=== PATIENT | male | born 1975 | race Asian ===

== ENCOUNTER 2022-08-07 06:35 | Emergency (ER) | payer OTHER ==
[~2022-08-07] VITALS: Ht 180.3 cm; Wt 92.5 kg
[2022-08-07 06:40] VITALS: BP 163/102
--- NOTE | 2022-08-07 06:45 | NUR ---
Patient ambulated to bed 12.
[2022-08-07 06:54] VITALS: BP 163/102
[2022-08-07] MEDS ORDERED: ONDANSETRON 4 MG ODT PO ONE (06:55)
--- NOTE | 2022-08-07 06:58 | NUR ---
Dr. Walker examining patient.
[2022-08-07] MEDS ORDERED: DICYCLOMINE HCL LIQUID 20 MG, ALUMINUM HYD/MAG/SIMETHICONE 30 ML, LIDOCAINE VISCOUS 2% ... PO ONE ×3 (07:00)
--- NOTE | 2022-08-07 07:00 | NUR ---
47/m walked in c/o epigastric pain onset today. denies vomiting or diarrhea but states nausea. pmh: gastric ulcer
[2022-08-07] MEDS ORDERED: IBUP-2213 PO (07:05)
[2022-08-07] MEDS ORDERED: ONDA8TAB87 PO (07:05)
[2022-08-07] MEDS ORDERED: OMEP40EC23 PO (07:05)
[2022-08-07] MEDS ORDERED: ALUMINUM HYD/MAG/SIMETHICONE 30 ML UDC ONE (07:07)
[2022-08-07] MEDS ORDERED: DICYCLOMINE HCL LIQUID 10 MG/5 ML UDC ONE (07:07)
--- NOTE | 2022-08-07 07:35 | NUR ---
Patient discharged with v/s stable. Written and verbal after care instructions given and explained. Patient verbalized understanding. Ambulatory with steady gait. All questions addressed prior to discharge. Advised to follow up with PMD.
== END 2022-08-07 07:34 | disposition home or self-care (01) ==
LOC: MED 06:35
DX: R10.13 Epigastric pain (principal)
CPT/HCPCS: 99283; Q0162

== ENCOUNTER 2022-08-08 13:14 | Inpatient (IN) | payer OTHER ==
[~2022-08-08] VITALS: Ht 180.3 cm; Wt 95.3 kg
[~2022-08-08 13:14] MED LIST: IBUP-2213 PO; OMEP40EC23 PO; ONDA8TAB87 PO
[2022-08-08 13:29] VITALS: BP 148/87
--- NOTE | 2022-08-08 13:35 | NUR ---
AMBULATED TO BED 5
--- NOTE | 2022-08-08 14:01 | NUR ---
47/M PRESENTS TO ED WITH C/O ABDOMINAL PAIN X3 DAYS, STATES HE WAS SEEN HERE 2 DAYS AGO AND DX WITH AN ULCER AND GIVEN RX OF OMEPRAZOLE AND MOTRIN WITH NO RELIEF IN PAIN. DENIES N/V/D OR URINARY SYMPTOMS, DENIES CP, SOB, FEVERS.
[2022-08-08] MEDS ORDERED: ALUMINUM HYD/MAG/SIMETHICONE 30 ML UDC ONE (14:04)
[2022-08-08] MEDS ORDERED: DICYCLOMINE HCL LIQUID 10 MG/5 ML UDC ONE (14:04)
[2022-08-08] MEDS ORDERED: DICYCLOMINE HCL LIQUID 20 MG, ALUMINUM HYD/MAG/SIMETHICONE 30 ML, LIDOCAINE VISCOUS 2% ... PO ONE ×3 (14:05)
[2022-08-08] MEDS ORDERED: ETOMIDATE 20 MG/10 ML VIAL IVP ONE ×2 (14:49→20:30)
[2022-08-08] MEDS ORDERED: ROCURONIUM 50 MG/5 ML VIAL IV ONE ×2 (14:49→20:30)
[2022-08-08] MEDS ORDERED: FAMOTIDINE 20 MG/2 ML VIAL IVP ONE (14:50)
[2022-08-08] MEDS ORDERED: ONDANSETRON 4 MG/2 ML VIAL IVP ONE (14:50)
[2022-08-08] MEDS ORDERED: NACL 0.9% 1,000 ML IV ONE (14:50)
[2022-08-08 15:10] LABS: HEMATOCRIT 42.7 % (36-52); HEMOGLOBIN 14.8 g/dL (12.0-18.0); MEAN CORPUSCULAR HEMOGLOBIN 28 pg (27-31); MEAN CORPUSCULAR HGB CONC 35 g/dL (33-37); MEAN CORPUSCULAR VOLUME 80.3 fL (80-94); PLATELET COUNT (AUTO) 272 K/uL (140-450); RED BLOOD CELL COUNT(AUTO) 5.32 MIL/uL (4.20-6.10); RED CELL DISTRIBUTION WIDTH 13.9 % (11.6-13.7); WHITE BLOOD COUNT (AUTO) 12.5 K/uL (4.8-10.8)
[2022-08-08 15:23] LABS: ALBUMIN 3.7 g/dL (3.4-5.0); ANION GAP 16.1 (8-16); CARBON DIOXIDE 27.2 mmol/L (21-32); CREATININE 1.2 mg/dL (0.6-1.3); POTASSIUM 3.3 mmol/L (3.5-5.1)
[2022-08-08 15:45] LABS: LYMPHOCYTES % (MANUAL) 3 % (20-46); MONOCYTES % (MANUAL) 2 % (5-12)
--- NOTE | 2022-08-08 16:18 | NUR ---
Patient is laying in bed, respirations even and unlabored. All needs met by staff.
[2022-08-08] MEDS ORDERED: cefTRIAXone 1,000 MG VIAL ONE (17:30)
--- NOTE | 2022-08-08 18:25 | NUR ---
Patient ambulated to restroom with steady gait.
[2022-08-08] MEDS ORDERED: metroNIDAZOLE 500 MG/NS PREMIX 100 ML IV ONE (18:50)
[2022-08-08] MEDS ORDERED: ONDANSETRON 4 MG/2 ML VIAL IVP PRN (19:05)
[2022-08-08] MEDS ORDERED: ZOLPIDEM 10 MG TAB PO PRN (19:05)
[2022-08-08] MEDS ORDERED: MAG SULF 2000 MG/WATER PREMIX 50 ML IV PRN (19:05)
[2022-08-08] MEDS ORDERED: DOCUSATE SODIUM 100 MG GELCAP PO PRN (19:05)
[2022-08-08] MEDS ORDERED: POTASSIUM CHLORIDE 10 MEQ TABER PO PRN (19:05)
[2022-08-08] MEDS ORDERED: ACETAMINOPHEN 325 MG TAB PO PRN (19:05)
[2022-08-08] MEDS: NACL 0.9% 1,000 ML IV SCH ×4 (19:07→22:20)
--- NOTE | 2022-08-08 19:10 | NUR ---
FRANCO obtained, walked to lab. Handed to CPT.
--- NOTE | 2022-08-08 19:16 | NUR ---
Report given to ALEX Lozano for transfer of care.
[2022-08-08] MEDS ORDERED: HALOPERIDOL IM 5 MG/ML VIAL IVP ONE ×2 (19:45→19:50)
[2022-08-08] MEDS ORDERED: diphenhydrAMINE 50 MG/ML VIAL IVP ONE (19:45)
--- NOTE | 2022-08-08 19:45 | NUR ---
PT OUT OF BED IS A&OX1. PT IS ALTERED. DR THOMPSON MADE AWARE OF PT STATUS. PT IS FEBRILE 105.0 TEMP. COOLING MEASURES BEING DONE.
[2022-08-08] MEDS ORDERED: diphenhydrAMINE 50 MG/ML VIAL ONE (19:47)
[2022-08-08] MEDS ORDERED: HALOPERIDOL IM 5 MG/ML VIAL ONE (19:47)
[2022-08-08] MEDS: LORazepam 2 MG/ML VIAL IVP PRN (19:52)
[2022-08-08] MEDS ORDERED: INTUBATION KIT MC ONE (20:17)
--- NOTE | 2022-08-08 20:28 | NUR ---
Marychuy marcos in [facility] - 08/08/[address] WEBSTER
--- NOTE | 2022-08-08 20:29 | NUR ---
DR ARANA TO INTUBATE PT . DR THOMPSON AWARE.
[2022-08-08] MEDS ORDERED: PROPOFOL 1000 MG/100 ML PREMIX 100 ML IV ONE (20:30)
[2022-08-08] MEDS ORDERED: fentaNYL citrate 1 MG in NACL 0.9% 80 ML IV SCH (20:30)
--- NOTE | 2022-08-08 20:32 | NUR ---
RT AT BEDSIDE, ALONG WITH ERMD YASMEEN FOR INTUBATION.
--- NOTE | 2022-08-08 20:37 | NUR ---
2031:RSI in progress at bedside with Dr. Leonard 2035: Etomidate 20mg given by JEREMY Giang 2036: Rocuronium 100mg given by JEREMY Giang 2036: Intubated at this time by Dr. Leonard. 7.5 ETT secured at 24cm at the lip. Equal chest riseand fall, lung sounds ausultated bilaterally. + color change. Pending CXR for tube placement.
[2022-08-08 20:45] VITALS: BP 125/63
--- NOTE | 2022-08-08 20:47 | NUR ---
PT INTUBATED XRAY AT BEDSIDE FOR PLACEMENT
--- NOTE | 2022-08-08 20:50 | NUR ---
PROPOFOL STARTED, MANAGED BY MIC LUNA.
[2022-08-08] MEDS ORDERED: ACETAMINOPHEN 650 MG SUPP RC STA (20:55)
[2022-08-08] MEDS ORDERED: ADENOSINE 6 MG/2 ML VIAL IVP ONE (20:55)
[2022-08-08] MEDS: PROPOFOL 1000 MG/100 ML PREMIX 100 ML IV PRN (21:00)
--- NOTE | 2022-08-08 21:00 | NUR ---
PT BED STATUS CHANGED TO ICU.
--- NOTE | 2022-08-08 21:11 | NUR ---
ULTRASOUND AT BEDSIDE
--- NOTE | 2022-08-08 21:16 | NUR ---
ULTRASOUND AT BEDSIDE
--- NOTE | 2022-08-08 21:45 | NUR ---
Prop increased to 30mcg/kg/min.
--- NOTE | 2022-08-08 21:55 | NUR ---
ABG DRAWN ORDERED AND RESULTS WERE REPORTED TO ED DR. BASELINE ABG FIO2 WAS TITRATED AND CURRENTLY 40% WITH SPO2 97% TEN MINUTES POST TITRATION, NO OTHER CHANGES WERE MADE. WILL CONTINUE TO MONITOR
--- NOTE | 2022-08-08 23:17 | NUR ---
RECEIVED PT FROM ED ACCOMPANIED VIA REFRIGERATING ENGINEER HEAD AND EMT.FOLLOWED BY EDWARDO MARRERO AND HIS ORIENTEP PT IS ACTIVELY HAVING A VERY FOUL SMELLING BM. HE STARTED IN THE CT LAB AND CONTINUE X2 IN THE ICU. HE'S INTUBATED TO PROTECT HIS AIRWAY BECAUSE HE BECAME ALTERED IN THE ED. HE HAS A 7.5 TUBE AND IT IS 23 AT THE LIP LINE. HE IS ON PROPOFOL , BUT IT'S A ONE TIME ORDER HIS IV SITE IS TWO SITE LFA 20 GAUGE AND THE RAC 20GAUGE HE HAS A RIBEIRO CATH IN PLACE BECAUSE HE LOST LUCIDITY AFTER HE HAD ALOC.
[2022-08-08 23:35] VITALS: BP 88/30
[2022-08-09] VITALS (19 sets, daily range): BP systolic 83–150; BP diastolic 50–113
--- NOTE | 2022-08-09 01:00 | NUR ---
TEXT SENT TO DR BAKER REQUESTING ORDERS FOR THE FLEXISEAL AND C-DIFF AND AN ODOR FOR PROPOFOL CONTINUOS. GTT. LATER A CALL WAS PLACED TO AND SHE ANSWERED HER PHONE AND SHE RELATED THE ORDERS TO [facility].
--- NOTE | 2022-08-09 02:00 | NUR ---
PT'S C-DIFF STOOL WAS COLLECTED AND TAKEN TO THE LAB.
[2022-08-09] MEDS: PROPOFOL 1000 MG/100 ML PREMIX 100 ML IV PRN ×5 (04:35→23:11)
[2022-08-09] MEDS: POTASSIUM CHLORIDE 20% 40 MEQ/15 ML UDC NG PRN (04:45)
[2022-08-09] MEDS ORDERED: PIPERACILLIN/TAZOBACTAM 3.375 GM VIAL IV ONE (04:47)
[2022-08-09] MEDS: PIPERACILLIN/TAZOBACTAM 3.375 GM in DEXTROSE 5% 50 ML IV SCH ×3 (04:54→21:17)
[2022-08-09 05:39] LABS: BASOPHILS % (AUTO) 0.1 % (0.0-2.0); HEMATOCRIT 43.3 % (36-52); HEMOGLOBIN 14.6 g/dL (12.0-18.0); LYMPHOCYTES # (AUTO) 0.9 K/uL (2.0-11.5); LYMPHOCYTES % (AUTO) 7.8 % (20.5-51.1); MEAN CORPUSCULAR HEMOGLOBIN 28 pg (27-31); MEAN CORPUSCULAR HGB CONC 34 g/dL (33-37); MEAN CORPUSCULAR VOLUME 83.4 fL (80-94); MONOCYTES # (AUTO) 0.4 K/uL (0.8-1.0); MONOCYTES % (AUTO) 3.7 % (1.7-9.3); NEUTROPHILS # (AUTO) 9.7 K/uL (1.8-7.7); NEUTROPHILS % (AUTO) 88.4 % (42.2-75.2); PLATELET COUNT (AUTO) 197 K/uL (140-450); RED BLOOD CELL COUNT(AUTO) 5.19 MIL/uL (4.20-6.10)
[2022-08-09 06:01] LABS: ALBUMIN 3.2 g/dL (3.4-5.0); ANION GAP 17.2 (8-16); CARBON DIOXIDE 26.8 mmol/L (21-32); CREATININE 1.3 mg/dL (0.6-1.3); TOTAL BILIRUBIN 3.3 mg/dL (0.0-1.0)
--- NOTE | 2022-08-09 07:30 | NUR ---
Received pt sedated. ETT to vent settings AC/VC TV 500 rate 18 PEEP 5 FiO2@35%. Sinus rhythm on monitor. NG-tube to right nare intact and clamped. Elizondo catheter draining to bedside drainage. Flexiseal in place. Peripheral IV 20 gauge on RAC intact and patent infusing NS@100ml/hr and peripheral IV 20 gauge on left forearm intact and patent infusing Propofol @45mcg/kg/min. Bilat soft wrist restraints in place. Safety precautions in place.
[2022-08-09] MEDS ORDERED: VANCOMYCIN PER PHARMACY MC PRN (07:35)
--- NOTE | 2022-08-09 08:15 | NUR ---
Seen and examined by Dr. Vizcaino.
--- NOTE | 2022-08-09 08:20 | NUR ---
Seen and examined by Dr. Meyer.
--- NOTE | 2022-08-09 08:30 | NUR ---
Seen and examined by Dr. Kapadia. Pt's mother at bedside speaking with Dr. Kapadia.
[2022-08-09] MEDS: VANCOMYCIN HCL 1.25 GM in DEXTROSE 5% 250 ML IV SCH ×2 (09:01→21:30)
--- NOTE | 2022-08-09 10:27 | NUR ---
PATIENT HAS BEEN SCREENED AND CATEGORIZED MODERATE NUTRITION RISK. PATIENT WILL BE SEEN WITHIN 3-5 DAYS OF ADMISSION. 08/08/22-08/13/[address] REFERRAL RECEIVED; INAPPROPRIATE TRIGGER.
[2022-08-09] MEDS ORDERED: NOREPINEPHRINE 4 MG in DEXTROSE 5% 250 ML IV PRN (10:50)
--- NOTE | 2022-08-09 11:06 | NUR ---
DC PLANNIN YRS OLD MALE PATIENT WAS ADMITTED FROM HOME WITH A DX OF ACUTE CHOLECYSTITIS. PATIENT HAS NO MEDICAL HX. CXR SHOWED NO ACUTE CARDIOPULMONARY DISEASE. RAPID COVID TEST NEGATIVE. KUB, CT ABD AND US GALLBLADDER SHOWED CHOLECYSTITIS. HIDA SCAN CONFIRMED CHOLECYSTITIS. CT HEAD NEGATIVE. INTUBATED SEDATED ON PROPOFOL DRIP. ADMINISTERED IVF, IV ABX VANCOMYCIN AND ZOSYN. CONSULTED WITH SURGEON, GI, PULMO AND ID. CM TO FOLLOW
--- NOTE | 2022-08-09 11:25 | NUR ---
Called PICC line for PICC line placement. Rodrick will call back with
--- NOTE | 2022-08-09 11:49 | NUR ---
Spoke to Dr. Gomez on the phone and updated him with ultrasound gallbladder and CT of abdomen and pelvis results and also reported liver function results and labs. New orders received for Flagyl and increase in IVF rate. Per Dr. Gomez, pt will need ERCP and biliary stent done today.
[2022-08-09] MEDS: NACL 0.9% 1,000 ML IV SCH ×4 (11:59→23:08)
[2022-08-09] MEDS: metroNIDAZOLE 500 MG/NS PREMIX 100 ML IV SCH ×2 (12:05→21:30)
--- NOTE | 2022-08-09 12:34 | NUR ---
Hida scan being done at bedside.
[2022-08-09 14:24] LABS: APPEARANCE,URINE CLOUDY (CLEAR); BILIRUBIN,URINE 2+ (NEGATIVE); BLOOD, URINE 2+ (NEGATIVE); COLOR,URINE ORANGE (YELLOW); LEUKOCYTE ESTERASE ,URINE NEGATIVE (NEGATIVE); NITRITE, URINE NEGATIVE (NEGATIVE); UGLUCOSE NEGATIVE (NEGATIVE)
[2022-08-09 14:38] LABS: WBC,URINE 0-5 /HPF (0-5); YEAST,URINE Few /HPF (None Seen)
[2022-08-09 14:39] LABS: OTHER CASTS, URINE None Seen /LPF (None Seen)
--- NOTE | 2022-08-09 14:56 | NUR ---
Per radiologist, he is not able to visualize the gallbladder and will need to take pictures in intervals.
--- NOTE | 2022-08-09 17:02 | NUR ---
Hida scan completed at bedside.
--- NOTE | 2022-08-09 18:30 | NUR ---
Seen and examined by Dr. Gomez. Dr. Gomez on the phone with sister Jennifer regarding procedure for tomorrow.
--- NOTE | 2022-08-09 19:20 | NUR ---
Endorsed to manufacturing supervisor 2nd shift nurse for continuity of care.
--- NOTE | 2022-08-09 20:00 | NUR ---
RECEIVED PATEINT INTUBATED, ON MECHANICAL VENTILATION. SEDATED WITH PROPOFOL @45MCG/KG/MIN TO KEEP RASS -3. PATIENT ON BILATERAL SOFT WRIST RESTRAINTS.
--- NOTE | 2022-08-09 21:00 | NUR ---
UPDATED SISTER @ BEDSIDE REGARDING PT CONDITION AND PLAN FOR PROCEDURE ON 08/10/22
[2022-08-09] MEDS: PANTOPRAZOLE 40 MG INJ VIAL IVP SCH (21:28)
[2022-08-10] VITALS (19 sets, daily range): BP systolic 100–133; BP diastolic 55–89
[2022-08-10] MEDS: PIPERACILLIN/TAZOBACTAM 3.375 GM in DEXTROSE 5% 50 ML IV SCH ×4 (03:32→20:08)
[2022-08-10] MEDS: PROPOFOL 1000 MG/100 ML PREMIX 100 ML IV PRN ×6 (03:46→22:32)
[2022-08-10 05:57] LABS: BASOPHILS % (AUTO) 0.4 % (0.0-2.0); EOSINOPHILS % (AUTO) 0.1 % (0.0-4.0); HEMATOCRIT 35.9 % (36-52); HEMOGLOBIN 12.1 g/dL (12.0-18.0); LYMPHOCYTES # (AUTO) 1.2 K/uL (2.0-11.5); LYMPHOCYTES % (AUTO) 12.6 % (20.5-51.1); MEAN CORPUSCULAR HEMOGLOBIN 28 pg (27-31); MEAN CORPUSCULAR HGB CONC 34 g/dL (33-37); MONOCYTES # (AUTO) 0.5 K/uL (0.8-1.0); MONOCYTES % (AUTO) 5.6 % (1.7-9.3); NEUTROPHILS # (AUTO) 7.9 K/uL (1.8-7.7); NEUTROPHILS % (AUTO) 81.3 % (42.2-75.2); PLATELET COUNT (AUTO) 127 K/uL (140-450); RED BLOOD CELL COUNT(AUTO) 4.38 MIL/uL (4.20-6.10); RED CELL DISTRIBUTION WIDTH 14.1 % (11.6-13.7); WHITE BLOOD COUNT (AUTO) 9.7 K/uL (4.8-10.8)
[2022-08-10 06:06] LABS: ANION GAP 14.4 (8-16); CARBON DIOXIDE 22.7 mmol/L (21-32); CREATININE 1.2 mg/dL (0.6-1.3); POTASSIUM 3.1 mmol/L (3.5-5.1)
[2022-08-10] MEDS: NACL 0.9% 1,000 ML IV SCH ×4 (06:47→19:27)
--- NOTE | 2022-08-10 07:15 | NUR ---
ENDORSED TO TUCKER LUNA
--- NOTE | 2022-08-10 07:35 | NUR ---
Received pt sedated. ETT to vent settings AC/VC TV 500 rate 18 PEEP 5 FiO2@23%. Sinus rhythm on monitor. NG-tube intact to right nare and clamped. Elizondo catheter intact and draining to BSD. Flexiseal intact and draining to gravity. PICC line on right upper arm intact and patent infusing Propofol 45mcg/kg/min and NS @200ml/hr. Peripheral IV RAC 20 gauge saline locked. Peripheral IV 20 gauge on left forearm saline locked. Bilat soft wrist restraints in place. Safety precautions in place.
[2022-08-10] MEDS: PANTOPRAZOLE 40 MG INJ VIAL IVP SCH ×2 (08:02→20:08)
[2022-08-10] MEDS: POTASSIUM CHLORIDE 20% 40 MEQ/15 ML UDC NG PRN (08:03)
--- NOTE | 2022-08-10 08:09 | NUR ---
Seen and examined by Dr. Vizcaino. Addendum: 08/10/22 at 1238 by Stephanie Abdalla RN [id number]: Reported calcium level. New order received.
[2022-08-10] MEDS ORDERED: CALCIUM GLUC 1 GM/50 mL NS BAG 50 ML IV SCH (08:18)
--- NOTE | 2022-08-10 11:41 | NUR ---
PT. WITH LOW BILLY SCALE AT MODERATE TO HIGH RISK, CONTINUE TO FOLLOW PRESSURE INJURY PREVENTION INTERVENTIONS. -POSITIONING: TURN AND REPOSITION PATIENT Q 2H OR SOONER USE PILLOWS TO KEEP BONY PROMINENCES FROM DIRECT CONTACT WITH SURFACES USE REPOSITIONING WEDGES TO PROVIDE 30-DEGREE ANGLE FOR SIDE LYING POSITIONS OFFLOADING OR FOAM DRESSING TO ALL TUBING TO PREVENT MEDICAL DEVICES RELATED PRESSURE INJURY -RE-EVALUATING AND MANAGING INCONTINENCE MONITOR SKIN CONDITION DURING POSITION CHANGE DO NOT MASSAGE REDNESS, BONY PROMINENCES FREQUENT JANE-CARE AND PROVIDE BARRIER CREAMS PRN IF SOILING MOISTURE CONTROL BY OFFER BED HOLDER/URINAL /ABSORBENT PAD TO WICK AND HOLD MOISTURE KEEP SKIN DRY AND PROTECT FROM FRICTION -MANAGE FRICTION/SHEAR/MOBILITY KEEP HOB AT THE LOWEST LEVEL OF ELEVATION NO MORE THAN 30 DEGREE UNLESS OTHERWISE CONTRAINDICATED USE LIFT SHEET OR TRANSFER DEVICE TO MOVE PATIENT AND PREVENT LATERAL SHEER. PROTECT HEELS, ELBOWS BONY PROMINENCES WITH SKIN BERRIES OR FOAM DRESSING IF EXPOSED TO FRICTION OFFLOAD BILATERAL HEELS BY PLACING PILLOWS UNDER CALVES AT ALL TIMES, UNLESS OTHERWISE CONTRAINDICATED -PRESSURE REDISTRIBUTION SURFACE THERAPY MARYCARMEN ISOFLEX MATTRESS -NUTRITION: PLEASE FOLLOW RD RECOMMENDATIONS AND OFFER NUTRITION SUPPLEMENTS IF ORDERED. PLEASE CONTACT WOUND CARE NURSE FOR ANY QUESTION AND CHANGE OF WOUND CONDITION.
--- NOTE | 2022-08-10 12:44 | NUR ---
EKG done at bedside.
[2022-08-10] MEDS ORDERED: ROCURONIUM 50 MG/5 ML VIAL IV ONE (13:33)
--- NOTE | 2022-08-10 13:35 | NUR ---
Left to OR for ERCP.
--- NOTE | 2022-08-10 14:26 | NUR ---
PT RETURNED TO ICU BED 2 VIA BED. VSS.
--- NOTE | 2022-08-10 14:42 | NUR ---
DC PLANNING PATIENT IS CURRENTLY INTUBATED, THEREFORE, WILFREDO OUTREACHED TO PATIENTS , MERISSA, TO GATHER COLLATERAL INFORMATION. MERISSA REPORTS THAT PATIENT RESIDES IN A TWO STORY HOME WITH HER, AT THE ADDRESS LISTED ON FILE. SHE REPORTS SHE IS PATIENT EMERGENCY CONTACT, . MERISSA REPORTS TO HER KNOWLEDGE PATIENT DOES NOT HAVE AD IN PLACE. MERISSA REPORTS THAT PATIENT IS INCONSISTENT WITH MEETING WITH PCP AND REPORTS LAST VISIT WITH A PCP 2 YRS AGO. MERISSA REPORTS PRIOR TO THIS VISIT, PATIENT DOES NOT TAKE MEDICATION AND DENIES BARRIERS IN ACCESS TO MEDICATION. MERISSA REPORTS PICKING UP MEDICATION FROM [facility] IN [place], IF NEEDED. PATIENT IS REPORTED TO BE AMBULATORY AND COMPLETES ALL ADL'S INDEPENDENTLY. 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 NO MH/SA HX REPORTED. MERISSA REPORTS DC PLAN IS FOR PATIENT TO RETURN HOME WHEN MEDICALLY STABLE.
--- NOTE | 2022-08-10 17:10 | NUR ---
Seen and examined by Dr. Burch.
--- NOTE | 2022-08-10 19:26 | NUR ---
Endorsed to wind up worker nurse for continuity of care.
--- NOTE | 2022-08-10 19:48 | NUR ---
@1920 assumed pt care bedside report received from Stephanie LUNA. Met pt awake very restless, ongoing Propofol drip, support at the bedside reorientation, defiant to redirection, repositioned for comfort, oral care suctioned via ETT, ventilator oxygen support A/C FIO2 23% O2 SAT 98% , NGT clamped , pt NPO, garcia to gravity jayda urine, loose stool via flexiseal, IV site PICC right upper arm dry and intact with dressing. Propofol drip increased to 60mcg/kg/min will continue to monitor and treat as per care plan.
[2022-08-10] MEDS: MORPHINE SULFATE 2 MG/ML SYR IVP PRN (20:09)
[2022-08-10 20:23] LABS: PROTHROMBIN TIME 9.8 secs (10.8-13.4)
--- NOTE | 2022-08-10 22:10 | NUR ---
Complete bed bath with CHG bath oral care and repositioned form comfort. Close monitoring for safety released skin checked tolerating all care and tx well
[2022-08-11] VITALS (26 sets, daily range): BP systolic 113–161; BP diastolic 47–95
[2022-08-11] MEDS: LORazepam 2 MG/ML VIAL IVP PRN (00:03)
[2022-08-11] MEDS: NACL 0.9% 1,000 ML IV SCH ×5 (00:04→20:53)
[2022-08-11] MEDS: PROPOFOL 1000 MG/100 ML PREMIX 100 ML IV PRN ×3 (01:33→10:20)
[2022-08-11] MEDS: PIPERACILLIN/TAZOBACTAM 3.375 GM in DEXTROSE 5% 50 ML IV SCH ×4 (03:46→20:53)
[2022-08-11] MEDS: MORPHINE SULFATE 2 MG/ML SYR IVP PRN (05:31)
[2022-08-11 05:41] LABS: ANION GAP 14.7 (8-16); CARBON DIOXIDE 22.5 mmol/L (21-32); CREATININE 0.7 mg/dL (0.6-1.3); POTASSIUM 3.2 mmol/L (3.5-5.1)
[2022-08-11 05:43] LABS: BASOPHILS % (AUTO) 0.5 % (0.0-2.0); EOSINOPHILS % (AUTO) 0.6 % (0.0-4.0); HEMATOCRIT 35.1 % (36-52); HEMOGLOBIN 11.9 g/dL (12.0-18.0); LYMPHOCYTES # (AUTO) 1.3 K/uL (2.0-11.5); LYMPHOCYTES % (AUTO) 20.1 % (20.5-51.1); MEAN CORPUSCULAR HEMOGLOBIN 28 pg (27-31); MEAN CORPUSCULAR HGB CONC 34 g/dL (33-37); MEAN CORPUSCULAR VOLUME 81.7 fL (80-94); MONOCYTES # (AUTO) 0.4 K/uL (0.8-1.0); MONOCYTES % (AUTO) 6.2 % (1.7-9.3); NEUTROPHILS # (AUTO) 4.7 K/uL (1.8-7.7); NEUTROPHILS % (AUTO) 72.6 % (42.2-75.2); PLATELET COUNT (AUTO) 131 K/uL (140-450); RED BLOOD CELL COUNT(AUTO) 4.29 MIL/uL (4.20-6.10); RED CELL DISTRIBUTION WIDTH 13.5 % (11.6-13.7); WHITE BLOOD COUNT (AUTO) 6.5 K/uL (4.8-10.8)
--- NOTE | 2022-08-11 07:22 | NUR ---
Change of shift report given to Stephy LUNA for continuity of care. As at this time pt restful no sign of agitation and no changes in care plan vitals signs stable
--- NOTE | 2022-08-11 07:25 | NUR ---
SBAR REPORT RECEIVED FROM SAMAN LUNA, ALL CARES ASSUMED. PT INTUBATED, SEDATED WITH PROPOFOL. VENT SETTING ACVC 18, 500, 23%, 5. BED IN LOW AND LOCKED POSITION.
[2022-08-11] MEDS: PANTOPRAZOLE 40 MG INJ VIAL IVP SCH ×2 (08:34→20:53)
--- NOTE | 2022-08-11 10:36 | NUR ---
DR. CHEN ROUNDING AT BEDSIDE, UPDATE GIVEN, PLAN OF CARE DISCUSSED. NOW NEW ORDERS AT THIS TIME.
--- NOTE | 2022-08-11 11:00 | NUR ---
FAMILY AT BEDSIDE, UPDATE GIVEN, QUESTIONS ANSWERED. FAMILY WOULD LIKE TO SPEAK WITH MD. MD AWARE.
--- NOTE | 2022-08-11 12:00 | NUR ---
PT STARTED ON CPAP TRIALS
--- NOTE | 2022-08-11 13:50 | NUR ---
LATE ENTRY- IV METRONIDAZOLE AND IV NORMAL SALINE DISCONTINUED AT 2315.
--- NOTE | 2022-08-11 14:54 | NUR ---
JD RELAYED TO LINO DAI TO EXTUBATE.
--- NOTE | 2022-08-11 15:40 | NUR ---
PT EXTUBATED PER PROTOCOL. VITALS REMAIN STABLE T/O PROCEDURE. PT TOLERATED WELL. WILL CONTINUE TO MONITOR.
--- NOTE | 2022-08-11 16:00 | NUR ---
PT EXTUBATED AT 1540. PT ON RA, MAINTAINING OXYGEN SATURATION >95%. PT TALKING WITH STAFF.
--- NOTE | 2022-08-11 19:10 | NUR ---
Assumed pt care change of shift bedside report received from Stephy LUNA pt awake alert oriented.
--- NOTE | 2022-08-11 19:25 | NUR ---
SBAR REPORT GIVEN TO SAMAN LUNA, ALL CARES ENDORSED.
--- NOTE | 2022-08-11 20:15 | NUR ---
pt awake alert oriented x4 coherent denies pain vitals signs stable afebrile, education on care plan, he verbalized understanding call light at reach bed in low position, pt is self turn. Family also at the ongoing support to alleviates anxiety. PT on room air O2 sat 9&% no sign of shortness of breadth no complain HR sinus rhythm/tachycardia, still NPO NGT clamped , loose black stool collecting via Flexiseal urine adequate output will continue to monitor and treat as per care plan. Tej have series of question pertaining to hiis care and if it requires surgery encouraged patinte to discuss with MD.
[2022-08-12] VITALS (11 sets, daily range): BP systolic 129–141; BP diastolic 64–90
--- NOTE | 2022-08-12 00:30 | NUR ---
NGT and garcia pulled out discontinued as patient requested complained of discomfort. Pt still awake unable to to sleep but refused sleeping medications as offered to pt.
[2022-08-12] MEDS: PIPERACILLIN/TAZOBACTAM 3.375 GM in DEXTROSE 5% 50 ML IV SCH ×2 (03:00→05:32)
[2022-08-12] MEDS: MORPHINE SULFATE 2 MG/ML SYR IVP PRN (05:32)
[2022-08-12] MEDS: NACL 0.9% 1,000 ML IV SCH ×3 (05:33→11:43)
[2022-08-12 06:09] LABS: BASOPHILS % (AUTO) 0.5 % (0.0-2.0); EOSINOPHILS % (AUTO) 0.2 % (0.0-4.0); HEMATOCRIT 35.5 % (36-52); HEMOGLOBIN 12.1 g/dL (12.0-18.0); LYMPHOCYTES # (AUTO) 1.6 K/uL (2.0-11.5); MEAN CORPUSCULAR HEMOGLOBIN 28 pg (27-31); MEAN CORPUSCULAR HGB CONC 34 g/dL (33-37); MEAN CORPUSCULAR VOLUME 81.3 fL (80-94); MONOCYTES # (AUTO) 0.4 K/uL (0.8-1.0); MONOCYTES % (AUTO) 6.2 % (1.7-9.3); NEUTROPHILS # (AUTO) 4.8 K/uL (1.8-7.7); NEUTROPHILS % (AUTO) 70.1 % (42.2-75.2); PLATELET COUNT (AUTO) 174 K/uL (140-450); RED BLOOD CELL COUNT(AUTO) 4.36 MIL/uL (4.20-6.10); RED CELL DISTRIBUTION WIDTH 13.4 % (11.6-13.7); WHITE BLOOD COUNT (AUTO) 6.9 K/uL (4.8-10.8)
[2022-08-12 06:25] LABS: ANION GAP 18.3 (8-16); CARBON DIOXIDE 20.2 mmol/L (21-32); CREATININE 0.7 mg/dL (0.6-1.3); POTASSIUM 3.5 mmol/L (3.5-5.1)
--- NOTE | 2022-08-12 06:30 | NUR ---
@0515 pt assisted to bedside commode flexiseal removed as , bath given bed linen changed complained of abdominal pain Morphine 2mg ivp and Zofran 4mg ivp given verbalized relieved pain at tolerable level awake alert in bed vitals signs stable.
--- NOTE | 2022-08-12 07:08 | NUR ---
Bedside report given to Stephy LUNA for continuity of care, as at this time vitals signs stable no changes in pt's condition and care plan.
--- NOTE | 2022-08-12 07:10 | NUR ---
SBAR REPORT RECEIVED FROM SAMAN LUNA, ALL CARES ASSUMED. PT AWAKE, ALERT, SITTING UP IN BED. BED IN LOW AND LOCKED POSITION, CALL LIGHT WITHIN REACH.
[2022-08-12 08:44] LABS: ALBUMIN 2.7 g/dL (3.4-5.0); BILIRUBIN,DIRECT 0.5 mg/dL (0.0-0.3); TOTAL BILIRUBIN 1.1 mg/dL (0.0-1.0)
[2022-08-12] MEDS: PANTOPRAZOLE 40 MG INJ VIAL IVP SCH (08:48)
--- NOTE | 2022-08-12 11:25 | NUR ---
PT TRANSFERRED TO ROOM 111-B WITH TRANSPORT MONITOR, ON RA. REPORT GIVEN TO STEVEN JOHNSON, ALL CARES ENDORSED.
--- NOTE | 2022-08-12 11:26 | NUR ---
RECEIVED PT FROM ICU NURSE. PT WHEELED FROM ICU TO [facility] VIA GURNEY. PT ABLE TO AMBULATE FROM GURNEY TO BED. A&O4, ABLE TO COMMUNICATE NEEDS. RESPIRATIONS EVEN AND UNLABORED ON RA. IV SITE ON LFA AND RAC. IV SITE ON RAC, LEAKING AND REMOVED. WITH TOMMY PICC LINE INFUSING IV FLUIDS. V/S TAKEN 129/80,19, 65, 98.2 95%. NO COMPLAINTS OF PAIN. PT ORIENTED TO ROOM, UNIT AND ROUTINE. CALL LIGHT WITHIN REACH. SAFETY PRECAUTIONS IN PLACE. WILL CONTINUE TO MONITOR.
[2022-08-12] MEDS ORDERED: METR-435 PO (11:38)
[2022-08-12] MEDS ORDERED: CIPR500T4 PO (11:38)
[2022-08-12] MEDS ORDERED: IBUP-2213 PO (11:38)
--- NOTE | 2022-08-12 12:30 | NUR ---
PT IN BED. DONE EATING LUNCH. PT REPORTED TOLERABLE ABDOMINAL PAIN. NO NAUSEA AND VOMITING. WILL CONTINUE TO MONITOR.
--- NOTE | 2022-08-12 14:30 | NUR ---
DC PAPERS DISCUSSED WITH THE PT. PT VERBALIZED UNDERSTANDING. REMOVED IV CATHETER INTACT. PICC LINE REMOVED BY JEREMY KHOURY, CATHETER INTACT. MOM AND AT BEDSIDE. PT GETTING READY TO GO HOME.
--- NOTE | 2022-08-12 15:20 | NUR ---
REMOVED ID WRIST BAND. ALL BELONGINGS TAKEN UPON DC. PT IS STABLE.
== END 2022-08-12 15:20 | disposition home or self-care (01) | DRG 871 ==
LOC: MED 13:14 → MTU 19:04 → MIC 21:40 → MTU 08-12 12:14
PROVIDERS: ADMIT Family Medicine; ATTEND Family Medicine
PROC: 5A1945Z Respiratory Ventilation, 24-96 Consecutive Hours (ICD-10-PCS; principal; 2022-08-08)
PROC: 0BH17EZ Insertion of Endotracheal Airway into Trachea, Via Natural or Artificial Opening (ICD-10-PCS; 2022-08-08)
PROC: 0F768DZ Dilation of Left Hepatic Duct with Intraluminal Device, Via Natural or Artificial Opening Endoscopic (ICD-10-PCS; 2022-08-11)
PROC: BF15ZZA Fluoroscopy of Liver, Guidance (ICD-10-PCS; 2022-08-11)
DX: A41.9 Sepsis, unspecified organism (principal); G93.41 Metabolic encephalopathy; J18.8 Other pneumonia, unspecified organism; J96.01 Acute respiratory failure with hypoxia; R65.21 Severe sepsis with septic shock; K81.0 Acute cholecystitis; E44.1 Mild protein-calorie malnutrition; K83.09 Other cholangitis; E87.6 Hypokalemia; Z20.822 Contact with and (suspected) exposure to COVID-19; N30.90 Cystitis, unspecified without hematuria; N20.0 Calculus of kidney; K82.8 Other specified diseases of gallbladder; K76.0 Fatty (change of) liver, not elsewhere classified; Z79.1 Long term (current) use of non-steroidal anti-inflammatories (NSAID); Z79.899 Other long term (current) drug therapy; Z87.891 Personal history of nicotine dependence; Z87.11 Personal history of peptic ulcer disease
CPT/HCPCS: 31500; 36415; 36600; 51702; 70450; 71045; 74018; 74330; 76705; 78445; 80048; 80053; 80076; 80202; 81001; 82803; 83605; 83690; 83735; 85025; 85610; 85730; 87040; 87070; 87081; 87086; 93005; 94002; 94003; 96365; 96375; 99283; 99291; C1769; C9113; J0153; J0610; J0696; J1200; J1630; J2060; J2270; J2405; J2543; J2704; J3370; J3490; J7030; J7060; Q0092; Q0162